=== PATIENT | female | born 1945 | race Caucasian/White ===

== ENCOUNTER 2020-08-01 18:20 | Emergency (ER) | payer OTHER ==
[~2020-08-01] VITALS: Ht 160 cm; Wt 102.1 kg
[2020-08-01] MEDS ORDERED: LEVO-T100 MCG PO (18:54)
[2020-08-01] MEDS ORDERED: ROSUVASTATIN CA10 MG PO (18:54)
[2020-08-01] MEDS ORDERED: TRAMADOL 50 MG50 MG PO (18:55)
[2020-08-01] MEDS ORDERED: ESCITALOPRA5 MG/5 ML PO (18:55)
[2020-08-01] MEDS ORDERED: SUPER THERAVIT1 EACH PO (18:55)
[2020-08-01] MEDS ORDERED: MESALAMINE1.2 GM PO (18:55)
[2020-08-01] MEDS ORDERED: VITAMIN C1000 MG PO (18:56)
[2020-08-01] MEDS ORDERED: FISH OIL 1,0001 EAC9 PO (18:56)
[2020-08-01] MEDS ORDERED: VITAMIN D3250 MC1 PO (18:57)
[2020-08-01] MEDS ORDERED: CARDIO OMEGA B1 EACH PO (18:57)
[2020-08-01] MEDS ORDERED: CALCIUM500 MG PO (18:57)
[2020-08-01] MEDS ORDERED: BIOTIN10000 MC1 PO (18:58)
[2020-08-01] MEDS ORDERED: DOXYCYCLINE 10100 MG PO (19:03)
[2020-08-01 19:15] VITALS: BP 160/52
== END 2020-08-01 19:15 | disposition home or self-care (01) ==
LOC: M.ERS 18:20
DX: S80.212A Abrasion, left knee, initial encounter (principal); L03.116 Cellulitis of left lower limb; E78.00 Pure hypercholesterolemia, unspecified; K50.90 Crohn's disease, unspecified, without complications; Z88.2 Allergy status to sulfonamides; W18.39XA Other fall on same level, initial encounter; Y93.89 Activity, other specified; Y92.89 Other specified places as the place of occurrence of the external cause; Y99.8 Other external cause status